=== PATIENT | male | born 1965 | race Caucasian/White ===

== ENCOUNTER 2019-01-05 18:20 | Inpatient (IN) ==
[~2019-01-05 18:20] MED LIST: HEPARIN (PORCINE) 1000 UNIT/ML 10 ML (CATH LAB USE ONLY) ONE; HEPARIN SOD 5,000 UNIT/0.5 ML VIAL ONE; MIDAZOLAM HCL 1 MG/ML 2ML VIAL ONE; NITROGLYCERIN/D5W 100MCG/ML 20ML SYR ONE; NiCARDipine HCL INJ 2.5 MG/ML 10 ML AMP ONE; TICAGRELOR 90 MG TAB PO ONE; fentaNYL citrate 100 MCG/2 ML VIAL ONE
--- NOTE | 2019-01-05 18:27 | Pre Anesthesia Assessment ---
Date of Service January 05, 2019 Pre Sedation Assessment Vital Signs Pulse Resp BP Pulse Ox 01/05/19 18:20 101 H 16 201/139 H 98 Cardiovascular RRR, no murmur, no edema Respiratory normal respiratory effort, lungs clear to auscultation Pre-Sedation Airway Assessment Smoking Status: Former smoker Hx Sleep Apnea: No Hx Difficult Intubation: No Short, Thick Neck: No Thyromental Distance: > or= 3.5 Finger Breadths Oral Cavity: + WNL Mallampati Class: II Procedure Planning Contraindications for Sedation: none Current Medications Reviewed: Yes Notes The planned sedation has been discussed with the patient. Informed Consent was obtained. I have identified the patient, determined the appropriateness of sedation and have assessed the patient immediately prior to the procedure. All medicine(s) and interventions are by my order.
--- NOTE | 2019-01-05 18:33 | Cardiology Consultation ---
Date of Consultation January 05, 2019 Assessment & Plan (1) ST elevation myocardial infarction (STEMI) of inferior wall: Presentation consistent with inferoposterior STEMI and recommend proceeding with emergent cardiac catheterization and likely primary PCI. No apparent contraindications to procedure. Discussed risks, benefits, alternatives of procedure with patient and they are willing to proceed. Given IV heparin and ticagrelor 180 mg in the ED. Further recommendations pending findings of coronary angiography. History of Present Illness History of Present Illness 53-year-old man here with acute chest pain and ECG concerning for acute LA. Patient seen emergently in the ED after heart alert activated from the field. Past cardiac history unremarkable. Cardiac risk factors include obesity, brief tobacco use and family history of premature coronary artery disease including his father having an LA in his 50s. No other real medical issues, not on any medications. Chest pain has been intermittent over the last 2 days, began after trying to run this evening approximately 45 minutes prior to arrival. Describes substernal pain with associated diaphoresis. Denies similar symptoms before 2 days ago. Given nitroglycerin, aspirin in route. Chest pain at time of arrival 01/11. Hypertensive with pressures up to the 190s. EKG showed [address] elevations, Allergies Allergy/AdvReac Type Severity Reaction Status Date / Time Penicillins Allergy Hives Verified 01/05/19 18:20 Home Medications Home Medications Medication Instructions Recorded Confirmed Type No Known Home Medications 01/05/19 01/05/19 History Patient History Social History Feels Safe at Home: Yes Smoking Status: Former smoker Review of Systems Review of Systems: All systems reviewed & are unremarkable except as noted in HPI & below Physical Exam Physical Exam: General: Comfortable, no acute distress Eyes: Sclerae anicteric, extraocular movements intact HENT: Oropharynx clear mucous membranes moist Lungs: Clear to auscultation bilaterally, no rhonchi or wheezes Cardiac: Regular rate and rhythm, no murmurs, rubs or gallops. Vascular: 2+ radial, DP and PT pulses. Abdomen: Soft, nontender, nondistended, positive bowel sounds. Extremities: Well perfused, no peripheral edema Skin: No rashes or lesions. Neuro: Nonfocal Psych: Alert orient x3, normal affect and mood Results & Data Vital Signs (Past 12 Hours) Vital Signs Pulse Resp BP Pulse Ox 01/05/19 18:20 101 H 16 201/139 H 98
[2019-01-05] MEDS ORDERED: ICU PROTOCOL FOR HYPERGLYCEMIA PRN (18:34)
[2019-01-05 18:36] LABS: Basophils # (auto) 0.01 K/uL (0-0.2); Basophils % (auto) 0.2 %; Eosinophils # (auto) 0.09 K/uL (0-0.5); Eosinophils % (auto) 1.5 %; Hematocrit (blood only) 45.7 % (42-52); Hemoglobin 16.9 g/dL (14.0-18.0); Immature Granulocytes # (auto) 0.02 K/uL (0.00-0.02); Immature Granulocytes % (auto) 0.3 %; Lymphocytes # (auto) 2.02 K/uL (1.2-3.4); Lymphocytes % (auto) 33.6 %; Mean Corpuscular Volume 86.4 fL (80-100); Mean Platelet Volume 10.1 fL (7.4-10.4); Monocytes # (auto) 0.49 K/uL (0.11-0.59); Monocytes % (auto) 8.1 %; Neutrophils # (auto) 3.39 K/uL (1.4-6.5); Neutrophils % (auto) 56.3 %; Platelet Count 187 K/uL (130-400); RDW Coefficient of Variation 12.2 % (11.5-14.5); RDW Standard Deviation 38.8 fL (36.4-46.3); Red Blood Count 5.29 M/uL (4.7-6.1); White Blood Count 6.02 K/uL (4.8-10.8)
--- NOTE | 2019-01-05 18:39 | XRay Report ---
XR chest 1V portable HISTORY: Atypical Chest Pain COMPARISON: None. FINDINGS: The lungs are clear. Cardiac silhouette is normal in size. No pleural effusions. No pneumot horax. IMPRESSION: No acute process. Electronically signed by: Mj Lopez M.D. 01/05/2019 6:37 PM
[2019-01-05 18:56] LABS: Albumin Level 4.1 gm/dl (3.4-5.0); BUN Creatinine Ratio 11.7 (10-20); Calcium 9.2 mg/dl (8.5-10.1); Est GFR (African American) 84.9; Est GFR (Non-African American) 73.3; Potassium 3.5 mmol/L (3.5-5.1)
[2019-01-05 19:08] LABS: Albumin Globulin Ratio 1.1 (0.9-2); Bilirubin,Total 0.4 mg/dl (0.2-1); Globulin 3.7 gm/dl (2.5-4.0); Total Protein 7.8 gm/dl (6.4-8.2); Troponin I 1.95 ng/ml (0-0.045)
[2019-01-05 19:10] LABS: INR 1.1 (0.9-1.1); Prothrombin Time 11.3 Seconds (9.0-12.0)
--- NOTE | 2019-01-05 19:11 | Cardiac Catheterization ---
Cardiac Cath Procedure Full Procedure Date January 05, 2019 Pre-Procedure Diagnosis Pre-Procedure Diagnosis: STEMI AUC Score AUC Score: 9 Post-Procedure Diagnosis Post-Procedure Diagnosis: Severe CAD, Decreased LV Systolic Function and Normal Intracardiac Pressures Procedure(s) Performed Procedure(s) Performed: Coronary Angiography, Left Heart Cath, LV Angiography and Drug Eluting Stent Drum Sander Denver Sweet MD Electrical Inspector(s) Glunt Estimated Blood Loss Estimated Blood Loss: 20 Medication(s) Medication(s): Fentanyl, Heparin, Lidocaine 1%, Nicardipine, Nitroglycerin and Versed Medication(s): Ticagrelor Summary of Findings Indication: STEMI/Heart Alert Access: 6 Fr right radial artery Catheters: Ikari 3.5 guide Findings: LM -Short, moderate caliber, no significant disease LAD -moderate caliber vessel, 20 to 30% mid segment at takeoff of first diagonal no significant distal disease as wraps around apex. 30% ostial stenosis and moderate caliber first diagonal. Circumflex -small caliber vessel, 20 to 30% ostial stenosis. Gives off 2 small OM's. Provided left to right collaterals at beginning of procedure RCA -dominant, large caliber vessel, 100% acute mid segment occlusion. Post intervention 40% distal stenosis. PDA, PLB is without significant disease. LVEDP -4 -- PCI -- Antithrombotic therapy: Heparin, ticagrelor Procedure: RCA cannulated with Ikari 3.5 guide Branch Lending Officer 50 wire passed across lesion into distal vessel Mid RCA lesion predilated with 2.5 compliant balloon Dilated lesion stented with 4.0 x 18 mm Xience Sharon drug-eluting stent Stent post-dilated with 4.0 noncompliant balloon IC vasodilators administered for spasm Post procedure PATRICE 3 flow, stent well expanded with minimal residual stenosis and no apparent cardiac complications. Arterial Closure: TR band Summary: 1. Inferior STEMI/acute occluded mid RCA 2. Mild non-culprit vessel coronary artery disease -20 to 30% mid LAD at bifurcation of first diagonal with 30% ostial stenosis 20 to 30% ostial circumflex (circumflex provided left to right collaterals to RCA at the beginning of procedure). 3. Normal intracardiac filling pressure 4. Successful PCI of mid RCA with single drug-eluting stent (4.0 x 18 mm Xience Sharon). Recommendations: Admit to ICU for continued monitoring Loaded with ticagrelor 180 mg Continue dual-antiplatelet therapy for at least 1 year. Trend troponins until peak, Check Echo Uptitrate beta-fernando/STACEY as BP allows High-dose statin Consult cardiac Rehab Hemodynamics Rest Ao:: 173/108/140 Final Ao: 124/85/103 LV: 128/4 Recommendations Recommendations: PCI without planned CABG Specimens Specimens: None Radiation Exposure (mGy) 2120 Contrast (mls) 90 Fluids (cc crystalloids) Fluids (cc crystalloids): 50 Drains Drains: None Anesthesia Moderate Procedural Complication(s) None Disposition ICU ACC Data: Metal Lather Cardiac Status Clinical evaluation leading to the procedure CAD Presenation: STEMI Anginal Classification: CCS IV Heart Failure: No Cardiogenic Shock within 24 Hours: No Cardiac Arrest within 24 Hours: No Imaging Studies Past 6 Months: No Stress Studies Past 6 Months: No Diagnostic Physicians Name: Denver Sweet MD Status: Emergency Closure Device Percutaneous Entry Location: Radial Closure Device: Radial Band Recommendations: PCI without planned CABG PCI Indication: Immediate PCI for STEMI First Noted: First EKG Lesion Segment Name: Mid RCA Culprit Artery: Yes Stenosis Prior to Rx (%): 100 Chronic Total Occlusion: No IVUS: No FFR: No Pre-Procedure PATRICE Flow: 0 Previously Treated Lesion: No Lesion Complexity: Non-High/Non-C Lesion Length (mm): 15 Thrombus Present: Yes Bifurcation Lesion: No Guidewire Across Lesion: Stenosis Post-Procedure (%): 0 Post-Procedure PATRICE Flow: 3 Devices(s) Deployed: Yes Yes Intraprocedure Events Significant Disection: No Perforation: No
[2019-01-05] MEDS ORDERED: ACETAMINOPHEN 325 MG TAB PO PRN (19:22)
[2019-01-05] MEDS ORDERED: ONDANSETRON INJ 2 MG/ML 2 ML VIAL IV PRN (19:22)
--- NOTE | 2019-01-05 19:22 | Post Anesthesia Assessment ---
Date of Service January 05, 2019 Post Sedation Assessment Vital Signs Pulse Resp BP Pulse Ox 01/05/19 18:20 101 H 16 201/139 H 98 Recovery Score Activity: Moves 4 extremities Respiration: Deep Breath/Cough Circulation: +/-20% PreAnes Value Consciousness: Fully Awake Oxygen Saturation: O2 needed for >90% Discharge Sedation Level of Care: Fast Track Phase II Post Sedation Plan On clinical assessment, the patient appears to have tolerated the sedation without complications. Patient is recovering as anticipated. Patient will continue to be monitored by nursing and may be discharged when sedation discharge criteria are met per below protocol. Upon Completions of procedure and additional 15 minutes continue every 5 minute vital signs and the P.A.R. score; then discharge to a Phase I or Fast Track to Phase II per the following guidelines: * Discharge Patient to appropriate Phase II area if PAR is 8 or greater or return to pre- procedure baseline. The post - procedure orders will be as directed. * If PAR score is less than 8 or not return to pre-procedure baseline then patient will follow Phase I monitoring till PAR is reached for Phase II. The Phase I may be done in procedure room or may call to secure a Phase I area. * If naloxone or flumazenil are used for reversal, hold in Phase I for continued monitoring from when last reversal dose was given for a minimum of 60 minutes or longer pending the nurse and/or physician discretion of patient condition before discharge to Phase II. Please call the Sedation Physician to re-evaluate and complete post-note for discharge to Phase II area. Do NOT discharge from procedure sedation or Phase 1 until post- sedation evaluation note is complete by procedure /sedation MD Sedation Discharge Instructions to be given to the patient at discharge to home.
[2019-01-05 19:25] LABS: Partial Thromboplastin Ratio 4.4; Partial Thromboplastin Time 117.9 Seconds (21.0-31.0)
[2019-01-05] MEDS ORDERED: SODIUM CHLORIDE 0.9% 1000ML 1,000 ML IV SCH (19:30)
--- NOTE | 2019-01-05 20:12 | Critical Care Consultation ---
Date of Consultation January 05, 2019 Assessment & Plan (1) Admitted to intensive care unit: Reason Critically Ill: 53-year-old male with acute inferior STEMI status post PTCA with MANNY x1 to the RCA. NEURO - * CAM ICU: NEGATIVE * Pain: Imperative to delineate between cardiac sources and non. Provide appropriate medications as needed. CARDIAC/VASCULAR - * Acute inferior STEMI s/p PTCA w/ MANNY x1 to the RCA: * Start BB now as patient w/ borderline HTN/Tachy upon arrival. * ASCVD/[id number] * Serial Trops * EKGs as needed. * AM Echo * EKG: Sinus Tach@112. Slight persistent ST elevation noted in inferior leads. QTc 442ms. * Monitor on telemetry. RESPIRATORY - * Prior smoker. * Supplemental O2 PRN GI/NUTRITION - * AHA Diet. RENAL/LYTES - * No significant electrolyte derangements. * Monitor lytes - replace appropriately. * IVF: NSS@100mL/hr x750mL total. - * No concerns at this time. * Strict I&Os. ENDO - * No h/o DM or Thyroid Dz * BSGs per unit protocol. ISS --> gtt per unit policy. HEME - * Stable H&H * Will trend s/p Heparin/ASA/Brilinta. * Monitor for s/s bleeding. ID - * No c/o infectious contribution at this time. * Trend fever curve. LINES/IV ACCESS - * PIVs x2 * TR Band tot he RIGHT wrist. DVT PROPHYLAXIS - * Hold on chemoprophylaxis s/p Rx administered above. Plan for early ambulation. * SCDs I have personally spent 35 minutes of critical care time in the direct management of this patient. This is a life/limb threatening event. This includes time spent evaluating patient, direct bedside care, chart review, placing orders, interpretation of diagnostic studies, discussion with consultants, patient, and family members, as well as other required patient management activities. This time is exclusive of all separately billable procedures, and teaching time and separate from and in addition to any other critical care service time. Thank you for allowing us to participate in the care of this patient. Please refer to my attending physician's documentation for any further recommendations. (2) Acute inferior myocardial infarction: (3) ST elevation myocardial infarction (STEMI) of inferior wall: (4) S/P PTCA (percutaneous transluminal coronary angioplasty): (5) S/P drug eluting coronary stent placement: Supervising Physician Co-Signing Physician Notes I have personally evaluated and examined this patient. I agree with assessment and plan of Carla Singh PA-C. History of Present Illness Attending Physician: Angella Ye DO Patient is a 53-year-old male with no significant past medical history who presented to the emergency department as a code HEART ALERT with complaints of waxing and waning chest pain since Friday. He reports that earlier today while picking up a load his truck, he rdevelopment of intense central chest pain with radiation to the LEFT arm. He did attempt to perform a "self stress test" by jogging in place. During this, he developed intense pain which prompted him contacting EMS. He was found to have an acute inferior ST segment elevation myocardial infarction. Upon arrival in the emergency department, he was loaded with heparin and aspirin. He received Brilinta as well. He subsequently went to the cardiac catheterization lab where he underwent PCI with MANNY x1 to the RCA. Patient had no complications intraprocedurally. He was transferred to the ICU in stable condition. Upon arrival in the ICU, the patient is awake, alert, and oriented. He reports that he is completely chest pain-free, however he does occasionally have a "twinge" of chest discomfort which waxes and wanes. Currently, he denies any pain rating his discomfort as 0/10. He denies any headaches, dizziness, lightheadedness, palpitations, shortness of breath, pleuritic pain, nausea, vomiting, or abdominal pain. He denies any numbness or weakness into the extremities. Patient does report a history of smoking. He did quit within the last several months. Significant family history including [place] from both his father and mother. Allergies Allergy/AdvReac Type Severity Reaction Status Date / Time Penicillins Allergy Hives Verified 01/05/19 18:20 Home Medications Home Medications Medication Instructions Recorded Confirmed Type No Known Home Medications 01/05/19 01/05/19 History Patient History Medical History No significant active problems No significant medical problems No significant past medical history No significant past surgical history Family History Father Myocardial infarction Social History Preferred Language: [place] Communication Ability: Effective Beliefs That Will Affect Care: None Current Living Situation: Spouse Feels Safe at Home: Yes Safety Concerns: Feels Safe At This Time Smoking Status: Former smoker Hx Alcohol Use: Yes Alcohol type: beer Hx Substance Use: No Review of Systems Review of Systems: All systems reviewed & are unremarkable except as noted in HPI & below A complete 10 point review of systems was reviewed with the patient with pertinent positives and negatives as per history of present illness. All else were negative. Physical Exam Physical Exam: VITAL SIGNS - Vital signs and nursing notes were reviewed. GENERAL - 53-year-old male appearing his stated age who is in no acute distress. Communicates well with provider and answers questions appropriately. HEAD - NC/AT. EYES - PERRL with EOMI bilaterally. Sclera anicteric. Palpebral conjunctiva pink and moist with no injection noted. EARS - No deformities of external structures noted on gross examination bilaterally. NOSE - Midline and without cyanosis. No epistaxis or purulent drainage noted. MOUTH/OROPHARYNX - Without perioral cyanosis. Buccal mucosa pink and moist and without leukoplakia. NECK - Neck with FROM. LUNGS - Chest wall symmetric without accessory muscle use, intercostals retractions, or central cyanosis. Normal vesicular breath sounds CTA B/L. No wheezes, rales, or rhonchi appreciated. CARDIAC - RRR with S1/S2. No murmur, rubs, or gallops appreciated. ABDOMEN - Abdominal contour obese without pulsations or visible masses. BS normoactive all four quadrants. No tenderness, palpable masses, hepatosplenomegaly, or ascites noted. EXTREMITIES - No clubbing or peripheral cyanosis. No pretibial edema present. +3/5 radial and dorsalis pedis pulses palpated throughout. +5/5 strength noted in UE/LE bilaterally. NEUROLOGIC - Cranial nerves II through XII grossly intact. Sensory intact to light touch throughout. PSYCH - A&Ox3 and cooperates fully with examiner. Pt is very pleasant and interacts well with examiner. Results & Data Vital Signs (Past 12 Hours) Vital Signs Temp Pulse Pulse Resp BP BP Pulse Ox 01/05/19 19:46 37.2 C 109 H 18 154/98 H 95 01/05/19 18:20 101 H 16 201/139 H 98 Critical Care Time Critical Care Time: Yes Total Critical Care Time: 35
--- NOTE | 2019-01-05 20:34 | Emergency Department Note ---
Entered by Karen Noguera acting as a scribe for Keon Cabrales MD History of Present Illness General Chief complaint: Heart Alert Source: patient Mode of arrival: EMS Limitations: no limitations History of Present Illness Provider complaint: chest pain Onset (ago): hour(s) 1 Location: chest Current Pain Intensity: 6 Quality: + other (+heaviness) Relieved By: + none Exacerbated By: + movement (+jogging) Associated symptoms: + diaphoresis and + nausea/vomiting (nausea no vomiting ); no shortness of breath Treatments prior to arrival: aspirin and other (+5 morphine, +3 sprays of nitroglycerin) The patient is a 53 year old male who presents to the Emergency Room with complaints of chest pain that began 2 days prior to arrival. The patient states that his pain has been intermittent. The patient rates his pain a 6/10 in severity. The patient states that jogging exacerbates his pain prior to arrival and states that it made his pain more prevalent. The patient states that his last known time well was approximately 1730. The patient states that he has diaphoresis and nausea. The patient denies any shortness of breath. The patient denies a history of any bleeding issues, kidney issues, or diabetes. The patient states that he used to smoke tobacco but states that he quit a few months ago. The patient states that he has a family history of an DC that his father had around the patient's current age. The patient denies taking any medications on a regular basis. Per EMS, the patient received 5 morphine, 3 sprays of nitroglycerin, and Aspirin. The patient states that the medications did not relieve his symptoms. The patient states that he is allergic to penicillins. Home Medications Home Medications Medication Instructions Recorded Confirmed Type No Known Home Medications 01/05/19 01/05/19 History Allergies Allergy/AdvReac Type Severity Reaction Status Date / Time Penicillins Allergy Hives Verified 01/05/19 18:20 Past Med/Surg History Medical History No significant active problems No significant medical problems No significant past medical history No significant past surgical history Family History Father Myocardial infarction Social History Preferred Language: [place] Communication Ability: Effective Beliefs That Will Affect Care: None Current Living Situation: Spouse Feels Safe at Home: Yes Safety Concerns: Feels Safe At This Time Smoking Status: Former smoker Hx Alcohol Use: Yes Alcohol type: beer Hx Substance Use: No Review of Systems See HPI for pertinent positives & negatives. and A total of 10 systems reviewed and were otherwise negative Physical Exam Vital Signs Vital Signs - 24 hr 01/05/19 18:20 Sepsis Recent Fever Within 48 Hours No Sepsis Action Taken by Nursing No Action Required Pulse Rate 101 H Pulse Rhythm Regular Pulse Strength Normal Respiratory Rate 16 Respiratory Effort / Characteristics Non-Labored Respiratory Depth Normal Respiratory Pattern Regular Blood Pressure 201/139 H Blood Pressure Mean 159 Blood Pressure Position Lying Pulse Oximetry 98 Oxygen Delivery Method Room Air GENERAL: Patient is in no acute distress. HEENT: No acute trauma, normocephalic atraumatic, mucous membranes moist, no nasal congestion, no scleral icterus. NECK: No stridor, no adenopathy, no meningismus, trachea is midline. LUNGS: Clear to auscultation bilaterally, no wheeze, no rhonchi, breath sounds equal. HEART: Without murmurs gallops or rubs, regular rate and rhythm. ABDOMEN: Soft, nontender, bowel sounds positive, no hernias, no peritonitis. EXTREMITIES: No cyanosis or edema, full range of motion of all the joints without pain or difficulty, no signs for acute trauma. NEUROLOGIC: Oriented x 3, no acute motor or sensory deficits, no focal weakness. SKIN: No rash, no jaundice, no diaphoresis. Course 1813: The patient was evaluated in room A1, and a complete history and physical examination were performed. 1908: The [facility] will [facility]ute the patient for further hospitalization. Consultations Consultation #1: [facility] [place] Time: 19:09 Administered Medications Sodium Chloride (Nss 1000ml) 1,000 mls @ 100 mls/hr IV .Q10H MARGIE Stop: 01/06/19 02:59 Last Admin: 01/05/19 20:24 Dose: 100 mls/hr Documented by: [id number] Metoprolol Tartrate (Lopressor) 25 mg PO BID MARGIE Stop: 02/04/19 20:59 Last Admin: 01/05/19 20:56 Dose: 25 mg Documented by: [id number] Discontinued Medications Fentanyl Citrate (Fentanyl Citrate) Confirm Administered Dose 100 mcg .ROUTE .STK-MED ONE Stop: 01/05/19 18:18 Last Increment: 01/05/19 19:00 Dose: 50 mcg Documented by: [id number] Heparin Sodium (Porcine) (Heparin Sodium (Porcine)) Confirm Administered Dose 5,000 units .ROUTE .STK-MED ONE Stop: 01/05/19 18:08 Last Admin: 01/05/19 18:19 Dose: 5,000 units Documented by: [id number] Cosigned by: [id number] Heparin Sodium (Porcine) (Heparin Iv Bolus (Panel Beater Use Only)) Confirm Administered Dose 10,000 units .ROUTE .STK-MED ONE Stop: 01/05/19 18:18 Last Admin: 01/05/19 19:00 Dose: 4,000 units Documented by: [id number] Heparin Sodium/Sodium Chloride (Heparin/Nss 1000 Unit/500ml Flush Bag) Confirm Administered Dose 3,000 units IV .STK-MED ONE Stop: 01/05/19 18:18 Last Admin: 01/05/19 18:59 Dose: 3,000 units Documented by: [id number] Midazolam HCl (Versed) Confirm Administered Dose 2 mg .ROUTE .STK-MED ONE Stop: 01/05/19 18:18 Last Increment: 01/05/19 18:59 Dose: 1 mg Documented by: [id number] Nicardipine HCl (Cardene) Confirm Administered Dose 25 mg .ROUTE .STK-MED ONE Stop: 01/05/19 18:18 Last Admin: 01/05/19 18:59 Dose: 25 mg Documented by: [id number] Nitroglycerin/Dextrose (Nitroglycerin/D5w 100 Mcg/Ml 20ml Syringe) Confirm Administered Dose 2,000 mcg .ROUTE .STK-MED ONE Stop: 01/05/19 18:18 Last Admin: 01/05/19 18:59 Dose: 2,000 mcg Documented by: [id number] Ticagrelor (Brilinta) Confirm Administered Dose 180 mg PO .STK-MED ONE Stop: 01/05/19 18:08 Last Admin: 01/05/19 18:19 Dose: 180 mg Documented by: [id number] Medical Decision Making Differential Diagnosis Differentials include DC, aortic dissection, PE, anemia, electrolyte imbalance, CHF, pneumonia, and musculoskeletal pain. Medical Records Attestation: I reviewed the patient's medical records. Home Medications Current Medication List: was personally reviewed by me Laboratory Data Attestation: I reviewed the patient's lab results. Result diagrams: 01/05/19 18:28 01/05/19 18:28 Lab Results 01/05/19 01/05/19 01/05/19 Range/Units 18:28 18:28 18:28 WBC 6.02 (4.8-10.8) K/uL RBC 5.29 (4.7-6.1) M/uL Hgb 16.9 (14.0-18.0) g/dL Hct 45.7 (42-52) % MCV 86.4 (80-100) fL MCH 31.9 (25-34) pg MCHC 37.0 H (32-36) g/dL RDW Std Deviation 38.8 (36.4-46.3) fL RDW Coeff of Steve 12.2 (11.5-14.5) % Plt Count 187 (130-400) K/uL MPV 10.1 (7.4-10.4) fL Immature Gran % (Auto) 0.3 % Neut % (Auto) 56.3 % Lymph % (Auto) 33.6 % [place] % (Auto) 8.1 % Eos % (Auto) 1.5 % Baso % (Auto) 0.2 % Immature Gran # (Auto) 0.02 (0.00-0.02) K/uL Neut # (Auto) 3.39 (1.4-6.5) K/uL Lymph # (Auto) 2.02 (1.2-3.4) K/uL [place] # (Auto) 0.49 (0.11-0.59) K/uL Eos # (Auto) 0.09 (0-0.5) K/uL Baso # (Auto) 0.01 (0-0.2) K/uL PT 11.3 (9.0-12.0) Seconds INR 1.1 (0.9-1.1) APTT 117.9 H* (21.0-31.0) Seconds PTT Ratio 4.4 Sodium 139 (136-145) mmol/L Potassium 3.5 (3.5-5.1) mmol/L Chloride 103 (98-107) mmol/L Carbon Dioxide 26 (21-32) mmol/L Anion Gap 10.0 (3-11) BUN 14 (7-18) mg/dl Creatinine 1.15 (0.6-1.4) mg/dl Est Cr Clr Drug Dosing 89.0 ml/min Est GFR ( Amer) 84.9 Est GFR (Non-Af Amer) 73.3 BUN/Creatinine Ratio 11.7 (10-20) Glucose 128 H (70-99) mg/dl Calcium 9.2 (8.5-10.1) mg/dl Magnesium 2.0 (1.8-2.4) mg/dl Total Bilirubin 0.4 (0.2-1) mg/dl AST 29 (15-37) U/L ALT 46 (12-78) U/L Alkaline Phosphatase 97 (45-117) U/L Troponin I 1.950 H* (0-0.045) ng/ml Total Protein 7.8 (6.4-8.2) gm/dl Albumin 4.1 (3.4-5.0) gm/dl Globulin 3.7 (2.5-4.0) gm/dl Albumin/Globulin Ratio 1.1 (0.9-2) Lipase 73 (73-393) U/L Imaging Data Radiologist's Impression: Radiology results as stated below per my review and the radiologist's interpretation: XR chest 1V portable HISTORY: Atypical Chest Pain COMPARISON: None. FINDINGS: The lungs are clear. Cardiac silhouette is normal in size. No pleural effusions. No pneumothorax. IMPRESSION: No acute process. Electronically signed by: Mj Lopez M.D. 01/05/2019 6:37 PM ECG Data Attestation: I personally reviewed and interpreted this ECG as follows: Indication: chest pain Rate (beats per minute): 99 Rhythm: normal sinus Findings: + other (+consistent with an acute inferior DC), + ST depression (in leads I, V1, V2, and AVL) and + ST elevation (in inferior leads ) Additional Comments: EKG Prior to Arrival: Indication: chest pain Rate: 97 Rhythm: normal sinus Findings: ST elevation in the inferior and lateral leads, ST depression in leads I, AVL, and V2, consistent with an inferior DC Blood Pressure Blood Pressure Findings: Elevated blood pressure Blood Pressure Disposition: further management by hospitalist CIERRA Narrative There is no leukocytosis or concerning anemia. PTT was elevated, likely consistent with the heparin he received. There was no significant electrolyte abnormality or kidney failure. No elevation to the liver enzymes. No evidence for pancreatitis. EKG showed evidence for an acute inferior DC with reciprocal changes. Troponin was elevated at 1.9 consistent with cardiac injury. Chest film did not show mediastinal widening, pneumonia or pneumothorax. The patient had received aspirin and nitroglycerin prior to arrival. A heart alert was called prior to arrival and cardiac intervention was present in the room during my evaluation. The steel erector apprentice asked for a dose of heparin IV and a dose of oral Brilinta. The patient presents with chest discomfort. He does have findings consistent with acute inferior DC. He was aggressively managed and taken as quickly as possible to the cardiac catheterization lab for coronary intervention. Patient is aware of our concerns. 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 Impression & Plan Acute inferior myocardial infarction Critical Care Time I have personally spent 35 minutes of critical care time in the direct management of this patient. This includes bedside care, interpretation of diagnostic studies, and testing, discussion with consultants, patient, and family members, and other required patient management activities. This 35 minutes is in excess of all separately billable procedures. Critical Care Time: Yes Total Critical Care Time: 35 Discharge Plan Visit Data *Final* Discharge Date/Time: 01/05/19 18:29 Chief Complaint: Heart Alert ED Provider: Keon Cabrales Discharge Problem: Acute inferior myocardial infarction Patient Disposition: Admitted As Inpatient Discharge Instructions Interventions: ED Discharge Assessment Last Done: 01/05/19 18:29 The scribe's documentation has been prepared under my direction and personally reviewed by me in its entirety. I confirm that the note above accurately reflects all work, treatment, procedures, and medical decision making performed by me.
[2019-01-05] MEDS: METOPROLOL TARTRATE 25 MG TAB PO SCH (20:56)
[2019-01-06 01:38] LABS: Basophils # (auto) 0.01 K/uL (0-0.2); Basophils % (auto) 0.2 %; Eosinophils # (auto) 0.07 K/uL (0-0.5); Eosinophils % (auto) 1.2 %; Hematocrit (blood only) 41.3 % (42-52); Immature Granulocytes # (auto) 0.01 K/uL (0.00-0.02); Immature Granulocytes % (auto) 0.2 %; Lymphocytes % (auto) 28.5 %; Mean Corpuscular Hgb Conc 36.3 g/dL (32-36); Mean Corpuscular Volume 86.9 fL (80-100); Mean Platelet Volume 10.1 fL (7.4-10.4); Monocytes # (auto) 0.54 K/uL (0.11-0.59); Monocytes % (auto) 9.6 %; Neutrophils # (auto) 3.39 K/uL (1.4-6.5); Neutrophils % (auto) 60.3 %; Platelet Count 170 K/uL (130-400); RDW Coefficient of Variation 12.3 % (11.5-14.5); RDW Standard Deviation 39.1 fL (36.4-46.3); Red Blood Count 4.75 M/uL (4.7-6.1); White Blood Count 5.62 K/uL (4.8-10.8)
--- NOTE | 2019-01-06 01:52 | History and Physical Report ---
DATE OF ADMISSION: 01/05/2019 CHIEF COMPLAINT: ST elevated myocardial infarction. HISTORY OF PRESENT ILLNESS: This 53-year-old male with no significant past medical history who presents with chest pain and found to have ST elevated myocardial infarction. 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 He states he has some borderline cholesterol, but does not take any medications. Says since last Friday, he is having chest pains in the middle of the chest radiating to the back on and off. he thought he might having indigestion.Today while loading the truck he developed severe chest pain with radiation to left arm and at that time he self stress tested by jogging which brought back severe chest pain and was profusely sweating when he called EMS.He laso felt like his throat was closing. Emergency Medical Service gave him morphine,nitro and aspirin, but that did not relieve much pain .Electrocardiogram showed ST elevations in inferior leads and was emergently taken to cardiac laboratory director and found to have 100% occluded mid RCA, status post 1 drug-eluting stent and also 20% to 30% mid left anterior descending, 30% ostial stenosis and 20% to 30% ostial circumflex stenosis. Since the procedure, the patient is chest pain free, resting comfortably, hemodynamically stable sometime have fluttering in the chest and some soreness, but otherwise feeling good. Denies any shortness of breath at this time. No headache. No blurred vision. No earache. No runny nose. No sore throat. No difficulty swallowing. No cough. No fever. No recent fever or chills. No nausea. No abdominal pain. Normal bowel and bladder movements. No blood in the stool. No black stools. No hematuria. No burning micturition. No swelling in the legs. No rash. The patient was noted to have some headaches. He states he snores in the night, but his states that he does not have any apneic episodes. His father had myocardial infarction and coronary artery bypass graft at the same age and mother had coronary artery bypass graft at the age of 65. He quit smoking about a year ago. ALLERGIES: PENICILLINS. PAST MEDICAL HISTORY: As mentioned above. PAST SURGICAL HISTORY: Hernia surgery. MEDICATIONS: None. FAMILY HISTORY: Father had myocardial infarction and coronary artery bypass graft at the age of 50 and mother had coronary artery bypass graft at age of 65. SOCIAL HISTORY: He quit smoking about a year ago. Alcohol, drinks mostly on the weekends. He lives with his . 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 REVIEW OF SYMPTOMS: As per HPI. Rest of review of symptoms is negative. PHYSICAL EXAMINATION: GENERAL: The patient is obese, not in acute distress. VITAL SIGNS: Temperature 37.2, pulse 74, respiratory rate 17, blood pressure 127/98 and oxygen 95 on room air. HEENT: No pallor. No icterus. Extraocular muscles are intact. NECK: No JVD. No neck masses. No carotid bruits. CARDIOVASCULAR: S1, S2 heard. Regular rate and rhythm. No murmur. No gallop. RESPIRATORY SYSTEM: Normal AP diameter. No accessory muscle use. No wheezing. No crackles. ABDOMEN: Soft. Bowel sounds present. Nontender. No distention. CENTRAL NERVOUS SYSTEM: Nonfocal. EXTREMITIES: No edema. No erythema. Right radial cardiac site, no erythema and no obvious bleeding seen. LABORATORY DATA: WBC 6, hemoglobin 16.9, hematocrit 45.7 and platelets 187. PT 11.2. INR 1.1. APTT 117. Sodium 139, potassium 3.5, chloride 103, bicarbonate 26, BUN 14, creatinine 1.15, serum glucose 128, calcium 9.2, magnesium 2, total bilirubin 0.4, ast 29, alt 46, alk.phosphate 97. Troponin 1.9. Lipase 73. Chest x-ray, no acute process seen. Electrocardiogram, sinus tachycardia with rate of 112 St elevations in inferior leads. ASSESSMENT AND PLAN: This is a 53-year-old male who presents with acute myocardial infarction. 1. Acute STEMI status post drug-eluting stent to 100% occluded mid right coronary artery. Currently stable and chest pain free.Started on aspirin and high dose statin, lisinopril, Lopressor and Brilinta. Closely monitor in the Intensive Care Unit and further management as per cardiology. Follow the fasting lipid profile and HbA1c level in a.m. 2. Tobacco abuse, quit smoking 1 year ago. 3 Deep venous thrombosis prophylaxis, sequential compression devices for now. 4. Disposition: Closely monitor in the Intensive Care Unit. Level 1 full code. MTDD
[2019-01-06 01:56] LABS: BUN Creatinine Ratio 11.7 (10-20); Calcium 8.5 mg/dl (8.5-10.1); Est GFR (African American) 105.6; Est GFR (Non-African American) 91.2; Potassium 3.8 mmol/L (3.5-5.1)
[2019-01-06 06:25] LABS: Estimated Average Glucose 140 mg/dl; Hemoglobin A1C 6.5 % (4.5-5.6)
[2019-01-06] MEDS: TICAGRELOR 90 MG TAB PO SCH ×2 (06:36→21:31)
[2019-01-06] MEDS: ATORVASTATIN 40 MG TAB PO SCH (07:35)
[2019-01-06] MEDS: LISINOPRIL 5 MG TAB PO SCH (07:35)
[2019-01-06] MEDS: METOPROLOL TARTRATE 25 MG TAB PO SCH ×2 (07:35→21:30)
[2019-01-06] MEDS: ASPIRIN 81 MG ECTAB PO SCH (07:35)
--- NOTE | 2019-01-06 08:15 | Hospitalist Progress Note ---
Date of Service January 06, 2019 Assessment & Plan (1) ST elevation myocardial infarction (STEMI) of inferior wall: (2) S/P drug eluting coronary stent placement: (3) Admitted to intensive care unit: STEMI INFERIOR WALL S/P PCI - MANNY X 1 in RCA Patient is a 53-year-old male who presented with STEMI, inferior wall S/P Emergent Cardiac cath on 01/05/19 - RCA 100% S/P PCI- MANNY X 1, 20-30% Mid LAD, 30% Ostial stenosis and 20-30% ostial circumflex stenosis -Continue with ASA, Brilinta, High intensity statin, Lisinopril -Work up- Lipid panel- TGs 197, LDL - 160, HBA1C -6.5 -Echo- EF 55-60%, Grade I diastolic dysfunction NEW ONSET DIABETES MELLITUS TYPE II HBA1C - 6.5 Life style modifications recommended -Counseling done DVT prophylaxis SCDS DISPOSITION Medical mx in progress Likely discharge in AM From [place]. Needs to establish care with PCP and follow up with english drawer Subjective Feeling well. No recurrent chest pain. No BP recently Telemetry reviewedno events. Echocardiogrampreserved LV function, base to mid hypokinesis, trace MR. Physical Exam Physical Exam: GENERAL- AAOX3, No acute distress LUNGS- Air entry bilaterally equal. No rales, rhonchi, crackles, wheezes heard. HEART- Regular rate and rhythm. No murmurs ABDOMEN- Soft, non tender, non distended, Bowel sounds heard. EXTREMITIES- S/P cardiac cath - Right arm ; Good peripheral pulses, no edema Results & Data Vital Signs (Past 12 Hours) Vital Signs Temp Pulse Resp BP Pulse Ox 01/06/19 07:00 68 13 126/88 94 01/06/19 06:00 80 15 132/83 94 01/06/19 05:00 71 13 128/91 94 01/06/19 04:00 37 C 67 18 120/82 93 01/06/19 03:00 68 16 126/83 94 01/06/19 02:00 66 12 124/82 94 01/06/19 01:00 80 14 135/83 95 01/06/19 00:00 37 C 73 15 131/90 96 01/05/19 23:00 74 17 127/98 95 01/05/19 22:00 90 17 147/96 H 96 01/05/19 21:15 97 H 20 143/95 H 95 01/05/19 21:00 92 H 12 150/100 H 94 01/05/19 20:45 99 H 13 146/104 H 94 01/05/19 20:30 101 H 15 134/99 95 01/05/19 20:15 96 H 14 145/98 H 94
[2019-01-06 08:45] LABS: Magnesium 2.4 mg/dl (1.8-2.4); Phosphorus 3.1 mg/dl (2.5-4.9)
--- NOTE | 2019-01-06 09:43 | Critical Care Progress Note ---
Date of Service January 06, 2019 Assessment & Plan (1) Admitted to intensive care unit: Reason Critically Ill: 53-year-old male with acute inferior STEMI status post PTCA with MANNY x1 to the RCA. NEURO - * CAM ICU: NEGATIVE * Pain: Imperative to delineate between cardiac sources and non. Provide appropriate medications as needed. CARDIAC/VASCULAR - * Acute inferior STEMI s/p PTCA w/ MANNY x1 to the RCA: * Start BB now as patient w/ borderline HTN/Tachy upon arrival. * ASCVD/[id number] * Serial Trops * EKGs as needed. * AM Echo * EKG: Sinus Tach@112. Slight persistent ST elevation noted in inferior leads. QTc 442ms. * Monitor on telemetry. RESPIRATORY - * Prior smoker. * Currently tolerating room air GI/NUTRITION - * AHA Diet. RENAL/LYTES - * No significant electrolyte derangements. * Fluids discontinue ENDO - * No h/o DM or Thyroid Dz * BSGs per unit protocol. ISS --> gtt per unit policy. * A1c 6.5 HEME - * Stable H&H * Will trend s/p Heparin/ASA/Brilinta. * Monitor for s/s bleeding. ID - * No c/o infectious contribution at this time. * Trend fever curve. LINES/IV ACCESS - * PIVs x2 DVT PROPHYLAXIS - * Hold on chemoprophylaxis s/p Rx administered above. Plan for early ambulation. * Lovenox * Patient previously refusing all anticoagulant/anti-lately medications with the exception of aspirin, multiple staff members attempted to explain true need for these medications Patient stable for downgrade out of the ICU (2) Acute inferior myocardial infarction: (3) ST elevation myocardial infarction (STEMI) of inferior wall: (4) S/P PTCA (percutaneous transluminal coronary angioplasty): (5) S/P drug eluting coronary stent placement: Supervising Physician Co-Signing Physician Notes Dr. Hdz was resident physician during care of patient. I separately evaluated patient for larios portions of the history and the exam. I was present during the critical portion of medical decision making, and I discussed the case with the resident. I generally agree with the findings and plan. Subjective Mr Villa doing very well today, no acute complaints besides a mild headache Review of Systems Constitutional: no fever and no chills Respiratory: + dyspnea on exertion; no cough Cardiovascular: no chest pain, no dyspnea, no palpitations and no lightheadedness Gastrointestinal: no abdominal pain, no nausea and no vomiting Physical Exam Constitutional: well developed, well nourished, + obese, cooperative and comfortable; no acute distress Respiratory: normal respiratory effort, lungs clear to auscultation Cardiovascular: Rate/Rhythm: regular rate and regular rhythm Heart Sounds: no click, no gallop, no murmur and no cardiac rub Gastrointestinal (Abdomen): Percussion/Palpation: abdomen soft; abdomen nontender Results & Data Vital Signs (Past 12 Hours) Vital Signs Temp Pulse Resp BP Pulse Ox 01/06/19 07:00 68 13 126/88 94 01/06/19 06:00 80 15 132/83 94 01/06/19 05:00 71 13 128/91 94 01/06/19 04:00 37 C 67 18 120/82 93 01/06/19 03:00 68 16 126/83 94 01/06/19 02:00 66 12 124/82 94 01/06/19 01:00 80 14 135/83 95 01/06/19 00:00 37 C 73 15 131/90 96 01/05/19 23:00 74 17 127/98 95 01/05/19 22:00 90 17 147/96 H 96 Critical Care Time Critical Care Time: No Resident Activity Tracking Resident Involvement: Resident Care Provided Care Provided: Adult Hospital Medicine
[2019-01-06] MEDS: ENOXAPARIN INJ 40 MG/0.4 ML SYR SQ SCH (10:40)
--- NOTE | 2019-01-06 12:35 | Cardiology Progress Note ---
Date of Service January 06, 2019 Assessment & Plan (1) ST elevation myocardial infarction (STEMI) of inferior wall: 2. Hypertension 3. Dyslipidemia 4. Preserved biventricular function, inferior hypokinesis Hemodynamically and electrically stable. No signs of heart failure on exam. No signs of significant access site complications. Trend troponin until peak Continue dual antiplatelet therapy with aspirin, Brilinta Continue current metoprolol, lisinopril. Continue high intensity statin From a cardiac standpoint okay with transfer to telemetry today. Hopeful for discharge tomorrow. Subjective Feeling well. No recurrent chest pain. Mild headache this morning. No other new complaints. Telemetry reviewedno events. Echocardiogrampreserved LV function, base to mid hypokinesis, trace MR. Review of Systems Review of Systems: All systems reviewed & are unremarkable except as noted in HPI & below Physical Exam Physical Exam: General: Comfortable, no acute distress HEENT: Sclerae anicteric, mucous membranes moist Lungs: Clear to auscultation bilaterally, no rhonchi or wheezes Cardiac: Regular rate and rhythm, no murmurs. No JVD. Abdomen: Soft, nontender, nondistended, positive bowel sounds. Extremities: Warm, well perfused, no edema. Right radial artery access site with minimal hematoma. Distal pulse and sensation intact. Skin: No rashes or lesions. Neuro: Nonfocal Psych: Alert orient x3, normal affect and mood Results & Data Vital Signs (Past 12 Hours) Vital Signs Temp Pulse Resp BP Pulse Ox 01/06/19 12:00 80 23 01/06/19 11:00 68 17 01/06/19 10:45 81 21 01/06/19 10:44 79 14 113/69 01/06/19 10:30 69 15 01/06/19 10:15 70 18 01/06/19 10:00 66 15 01/06/19 09:45 74 22 01/06/19 09:30 77 12 01/06/19 09:24 73 16 119/75 01/06/19 09:15 75 12 01/06/19 09:01 94 H 22 01/06/19 08:45 75 14 01/06/19 08:30 76 17 01/06/19 08:15 78 16 01/06/19 08:00 78 12 01/06/19 07:45 85 17 01/06/19 07:40 73 14 124/83 01/06/19 07:30 71 14 01/06/19 07:27 82 16 139/108 H 01/06/19 07:15 72 11 L 01/06/19 07:00 68 13 126/88 94 01/06/19 06:45 70 14 94 01/06/19 06:00 80 15 132/83 94 01/06/19 05:00 71 13 128/91 94 01/06/19 04:00 37 C 67 18 120/82 93 01/06/19 03:00 68 16 126/83 94 01/06/19 02:00 66 12 124/82 94 01/06/19 01:00 80 14 135/83 95
[2019-01-06] MEDS ORDERED: DOCUSATE SODIUM 100 MG CAP PO PRN (16:55)
[2019-01-07] MEDS: TICAGRELOR 90 MG TAB PO SCH (07:43)
[2019-01-07] MEDS: LISINOPRIL 5 MG TAB PO SCH (07:43)
[2019-01-07] MEDS: METOPROLOL TARTRATE 25 MG TAB PO SCH (07:43)
[2019-01-07] MEDS: ATORVASTATIN 40 MG TAB PO SCH (07:43)
[2019-01-07] MEDS: ASPIRIN 81 MG ECTAB PO SCH (07:43)
[2019-01-07] MEDS: ENOXAPARIN INJ 40 MG/0.4 ML SYR SQ SCH (07:43)
[2019-01-07 08:44] LABS: BUN Creatinine Ratio 13.1 (10-20); Calcium 9.3 mg/dl (8.5-10.1); Creatinine Clr Calc Pharmacy 88.7 ml/min; Est GFR (African American) 86.7; Est GFR (Non-African American) 74.8; Potassium 4.2 mmol/L (3.5-5.1)
--- NOTE | 2019-01-07 11:06 | Cardiology Progress Note ---
Date of Service January 07, 2019 Assessment & Plan (1) ST elevation myocardial infarction (STEMI) of inferior wall: 2. Hypertension 3. Dyslipidemia 4. Preserved biventricular function, inferior hypokinesis Hemodynamically and electrically stable. No signs of heart failure on exam. No signs of significant access site complications. From a cardiac standpoint okay for discharge today. Discharge on aspirin, Brilinta. Continue lisinopril. Convert metoprolol to Toprol-XL 50 mg daily. Continue high intensity statin. Follow-up with glue spreader in [place] in 2 to [address] weeks[address] Wishes to see Dr. Vernon. Subjective Patient feeling well today. No recurrent chest pain. No significant shortness of breath. No pain at right radial access site. Telemetry reviewedno events. Review of Systems Review of Systems: All systems reviewed & are unremarkable except as noted in HPI & below Physical Exam Physical Exam: General: Comfortable, no acute distress HEENT: Sclerae anicteric, mucous membranes moist Lungs: Clear to auscultation bilaterally, no rhonchi or wheezes Cardiac: Regular rate and rhythm, no murmurs. No JVD. Abdomen: Soft, nontender, nondistended, positive bowel sounds. Extremities: Warm, well perfused, no edema. Right radial artery access site with no ecchymosis, hematoma. Distal pulse and sensation intact. Skin: No rashes or lesions. Neuro: Nonfocal Psych: Alert orient x3, normal affect and mood Results & Data Vital Signs (Past 12 Hours) Vital Signs Temp Pulse Pulse Resp BP BP Pulse Ox 01/07/19 10:57 37.0 C 71 19 121/77 96 01/07/19 07:21 68 01/07/19 07:02 36.9 C 78 19 115/74 95 01/07/19 04:00 36.6 C 76 18 118/69 96 01/07/19 00:00 66 01/06/19 23:07 36.9 C 67 15 99/64 L 98
--- NOTE | 2019-01-07 12:22 | Hospitalist Progress Note ---
Date of Service January 07, 2019 Assessment & Plan (1) ST elevation myocardial infarction (STEMI) of inferior wall: (2) S/P drug eluting coronary stent placement: (3) Admitted to intensive care unit: STEMI INFERIOR WALL S/P PCI - MANNY X 1 in RCA Patient is a 53-year-old male who presented with STEMI, inferior wall S/P Emergent Cardiac cath on 01/05/19 - RCA 100% S/P PCI- MANNY X 1, 20-30% Mid LAD, 30% Ostial stenosis and 20-30% ostial circumflex stenosis -Continue with ASA, Brilinta, Atorvastatin 80 mg, Toprol XL 50 mg, Lisinopril on discharge -Work up- Lipid panel- TGs 197, LDL - 160, HBA1C -6.5 -Echo- EF 55-60%, Grade I diastolic dysfunction NEW ONSET DIABETES MELLITUS TYPE II HBA1C - 6.5 Life style modifications recommended -Counseling done -Need to follow up outpatient closely DVT prophylaxis SCDS DISPOSITION Cleared for discharge by cardiology Ok to discharge home today From [place]. Needs to establish care with PCP and follow up with noodle maker Updated by bedside (ER nurse) Lifestyle modifications counseling done Subjective Patient feeling well today. No recurrent chest pain. No significant shortness of breath. No pain at right radial access site. Telemetry reviewedno events. Eager to be discharged Physical Exam Physical Exam: GENERAL- AAOX3, No acute distress LUNGS- Air entry bilaterally equal. No rales, rhonchi, crackles, wheezes heard. HEART- Regular rate and rhythm. No murmurs ABDOMEN- Soft, non tender, non distended, Bowel sounds heard. EXTREMITIES- S/P cardiac cath - Right arm - no bleeding or tenderness; Good peripheral pulses, no edema Results & Data Vital Signs (Past 12 Hours) Vital Signs Temp Pulse Pulse Resp BP BP Pulse Ox 01/07/19 10:57 37.0 C 71 19 121/77 96 01/07/19 07:21 68 01/07/19 07:02 36.9 C 78 19 115/74 95 01/07/19 04:00 36.6 C 76 18 118/69 96
--- NOTE | 2019-01-07 12:36 | Discharge Summary ---
Date of Service January 07, 2019 Admission HPI Per Admitting Provider HISTORY OF PRESENT ILLNESS: This 53-year-old male with no significant past medical history who presents with chest pain and found to have ST elevated myocardial infarction. 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 He states he has some borderline cholesterol, but does not take any medications. Says since last Friday, he is having chest pains in the middle of the chest radiating to the back on and off. he thought he might having indigestion.Today while loading the truck he developed severe chest pain with radiation to left arm and at that time he self stress tested by jogging which brought back severe chest pain and was profusely sweating when he called EMS.He laso felt like his throat was closing. Emergency Medical Service gave him morphine,nitro and aspirin, but that did not relieve much pain .Electrocardiogram showed ST elevations in inferior leads and was emergently taken to cardiac dental laboratory worker and found to have 100% occluded mid RCA, status post 1 drug-eluting stent and also 20% to 30% mid left anterior descending, 30% ostial stenosis and 20% to 30% ostial circumflex stenosis. Since the procedure, the patient is chest pain free, resting comfortably, hemodynamically stable sometime have fluttering in the chest and some soreness, but otherwise feeling good. Denies any shortness of breath at this time. No headache. No blurred vision. No earache. No runny nose. No sore throat. No difficulty swallowing. No cough. No fever. No recent fever or chills. No nausea. No abdominal pain. Normal bowel and bladder movements. No blood in the stool. No black stools. No hematuria. No burning micturition. No swelling in the legs. No rash. The patient was noted to have some headaches. He states he snores in the night, but his states that he does not have any apneic episodes. His father had myocardial infarction and coronary artery bypass graft at the same age and mother had coronary artery bypass graft at the age of 65. He quit smoking about a year ago. Principal Diagnosis 1. STEMI, Inferior 2. S/P PCI with MANNY X 1 in RCA 3. New onset DM II 4. Obesity Discharge Data Allergies Allergy/AdvReac Type Severity Reaction Status Date / Time Penicillins Allergy Hives Verified 01/05/19 18:20 Consultations 01/05/19 18:34 Consult Case Management - Discharge Planning Routine Consult Fertilizer Applicator Routine 01/05/19 19:25 ED Decision to Admit Stat 01/05/19 23:15 Consult Cardiology Routine Procedures Performed Operation Date: 01/05/19 18:00 Actual Procedures p Cath, Left with Cors and Vent - Rashaun Sweet MD s Cineradiography w/Routine Exam - Rashaun Sweet MD s Aspiration/PCI w/MANNY for Stemi - Rashaun Sweet MD Ordered Studies 01/05/19 18:16 CL Cath Imgs for PACS use only Stat Hospital Course (1) ST elevation myocardial infarction (STEMI) of inferior wall: (2) S/P drug eluting coronary stent placement: (3) Admitted to intensive care unit: STEMI INFERIOR WALL S/P PCI - MANNY X 1 in RCA Patient is a 53-year-old male who presented with STEMI, inferior wall S/P Emergent Cardiac cath on 01/05/19 - RCA 100% S/P PCI- MANNY X 1, 20-30% Mid LAD, 30% Ostial stenosis and 20-30% ostial circumflex stenosis -Continue with ASA, Brilinta, Atorvastatin 80 mg, Toprol XL 50 mg, Lisinopril on discharge -Work up- Lipid panel- TGs 197, LDL - 160, HBA1C -6.5 -Echo- EF 55-60%, Grade I diastolic dysfunction NEW ONSET DIABETES MELLITUS TYPE II HBA1C - 6.5 Life style modifications recommended -Counseling done -Need to follow up outpatient closely DVT prophylaxis SCDS DISPOSITION Cleared for discharge by cardiology Ok to discharge home today From [place]. Needs to establish care with PCP and follow up with insight leader Updated by bedside (ER nurse) Lifestyle modifications counseling done Total Time Total Time Spent Total Time Spent (In Minutes): 38 minutes Discharge Plan Discharge Items Patient Disposition: Home - Self-Care Reason For Visit: STEMI Discharge Diagnosis: STEMI (Myocardial infarction) Status post cardiac cath with PCI- Drug eluting stent placed in right coronary artery on 01/05/19 Discharge Goals: Improve disease control Activity: Resume your previous activity Activity Comment: As tolerated and as instructed Lifting: No more than 10 pounds Non-emergency contact: Primary Care Provider and [employer] Call non-emergency contact if: your symptoms worsen Follow-up/Referrals: Rashaun Sweet MD [Physician] - (Establish Care with PCP Follow up with cardiology in [place]. If you do not receive appt date/time at time of discharge, please call Dr Sweet office for cardiology appt set up) Diet: Carb Consistent or DM2, Heart Healthy, Low Fat and Low Sodium (2gm) Addtl Provider Instructions: NEW MEDICATIONS 1. Aspirin 81 mg daily 2. Brilinta 90 mg PO twice a day (Do not stop both medications till instructed by PCP/Cardiology) 3. Lisinopril 5 mg daily 4. Toprol XL 50 mg daily 5. Atorvastatin 80 mg at bedtime Your HBA1C 6.5 ---> New diagnosis . Need to work on lifestyle modifications- anti diabetic diet. Needs to be closely monitored outpatient Prescriptions: New Brilinta 90 mg Tablet 90 mg PO BID 30 Days Qty: 60 RF: 0 atorvastatin 40 mg Tablet 80 mg PO QAM 30 Days Qty: 60 RF: 0 aspirin [Ecotrin Low Strength] 81 mg Tablet,Delayed Release (Dr/Ec) 81 mg PO QAM 30 Days Qty: 30 RF: 0 lisinopril [Zestril] 5 mg Tablet 5 mg PO QAM 30 Days Qty: 30 RF: 0 metoprolol succinate [Toprol XL] 50 mg tablet extended release 24 hr 50 mg PO DAILY Qty: 30 RF: 0 No Action No Known Home Medications RF: 0 Stand-Alone Forms: Just Sing It/Other Patient Handouts: Diabetes Type 2 Coping, Diabetes Meal Planning Discharge Orders: Discharge Order (Routine); Ordered 01/07/19 Ordered By: Rosy Block Admission Data Admit Date/Time: 01/05/19 18:34 Attending Provider: Rosy Block Admit Provider: Rashaun Sweet Primary Care Provider: David Brewer Other Providers: Mayur Milton ; Beto Wilkes ; Rashaun Sweet Service: Intensive Care Unit
== END 2019-01-07 13:46 | disposition home or self-care (01) | DRG 247 ==
LOC: ED 18:20 → CC 18:29 → SUATTDRO 18:34 → 1E 18:34 → 2S 01-06 13:01